=== PATIENT | female | born 1940 | race Caucasian/White ===

== ENCOUNTER 2017-03-20 20:45 | Emergency (ER) | payer BC ==
[~2017-03-20] VITALS: Ht 165.1 cm; Wt 95.0 kg
[2017-03-20] MEDS ORDERED: LORAZEPAM 2 MG INJ IV STA (20:48)
[2017-03-20 20:52] VITALS: Ht 165.1 cm; Wt 95.0 kg
[2017-03-20 21:09] LABS: BASOPHIL # 0.1 10^3/ul (0.0-0.1); BASOPHILS % 0.7 % (0.0-2.0); EOSINOPHILS # 0.3 10^3/ul (0.0-0.5); EOSINOPHILS % 2.9 % (0.0-7.0); HEMOGLOBIN 12.1 g/dl (12.0-16.0); LYMPHOCYTES # 3.2 10^3/ul (0.8-2.9); LYMPHOCYTES % 31.5 % (15.0-51.0); MEAN CORPUSCULAR HEMOGLOBIN 30.3 pg (29.0-33.0); MEAN CORPUSCULAR VOLUME 97.5 fl (82.0-101.0); MEAN PLATELET VOLUME 10.6 fl (7.4-10.4); MONOCYTES % 10.3 % (0.0-11.0); NEUTROPHIL # 5.4 10^3/ul (1.6-7.5); NEUTROPHILS % 54.2 % (39.0-77.0); PLATELET COUNT 305 10^3/UL (140-415); WHITE BLOOD COUNT 10.1 10^3/ul (4.8-10.8)
[2017-03-20 21:29] LABS: ANION GAP 20 (8-16); BLOOD UREA NITROGEN 27 mg/dl (7-20); CALCIUM 9.5 mg/dl (8.4-10.2); CARBON DIOXIDE 18 mmol/L (21-31); CHLORIDE 107 mmol/L (97-110); CREATININE 1.35 mg/dl (0.44-1.00); GLUCOSE 176 mg/dl (70-220); SODIUM 141 mmol/L (135-144)
[2017-03-20] MEDS ORDERED: HYD25 PO (21:41)
[2017-03-20] MEDS ORDERED: LISI40TA9 PO (21:41)
[2017-03-20] MEDS ORDERED: METF500T4 PO (21:42)
[2017-03-20] MEDS ORDERED: SIMV40TA2 PO (21:42)
[2017-03-20] MEDS ORDERED: ASPI-664 PO (21:43)
[2017-03-20] MEDS ORDERED: METO50TA16 PO (21:43)
[2017-03-20] MEDS ORDERED: ALBU18HF INHALATION (21:44)
[2017-03-20 21:52] LABS: TROPONIN-I < 0.012 ng/ml (0.00-0.12)
--- NOTE | 2017-03-20 22:18 | RADRPT ---
PROCEDURE: CT Brain without contrast. CLINICAL INDICATION: Seizure TECHNIQUE: A multiplanar CT of the brain was performed on a CT scanner utilizing axial imaging fro m the skull base through the vertex without IV contrast. The CTDIvol is 41.12 mGy and the DLP is 72 0.23 mGycm. One or more of the following dose reduction techniques were utilized: Automated exposu re control, adjustment of the mA and/or kV according to patient size, use of iterative reconstructio n technique. COMPARISON: None FINDINGS: No evidence of intracranial hemorrhage or abnormal extra-axial fluid collection. 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 The brain parenchyma is otherwise normal attenuation and morphology with preservation of pacheco white differentiation.The ventricles and subarachnoid spaces are prominen t compatible with volume loss. Atherosclerotic calcification of the cavernous internal carotid arter ies. The basal cisterns, posterior fossa contents, brainstem, craniocervical junction, orbits, pituitary axis, paranasal sinuses, mastoid air cells, and calvarium are unremarkable. IMPRESSION: 1. No intracranial hemorrhage or acute intracranial abnormality. MRI may be considered for further evaluation as clinically RPTAT:AAJJ Physician Kesha Date Time Electronically viewed and signed by Physician Kesha on 03/20/2017 22:17 RAAD/
--- NOTE | 2017-03-20 23:15 | ERD ---
ER Documentation Chief Complaint Date/Time DATE: 03/20/17 TIME: 23:14 Chief Complaint BIBRA c/o SE x 2 episodes. Combative and post ictal on scene. HPI Patient is a 76-year-old female with seizures who presents with a seizure. Please note the history and physical exam is limited secondary to the patient's mental status at this time. The patient was brought in by ambulance. The patient had a seizure and has been combative with paramedics. She was placed in restraints to protect herself but now has skin tears to the bilateral forearms. She is now slightly more alert than when the paramedics picked her up. She is a history of seizure and stopped her medications 2 years ago under the guidance of her doctor. ROS All systems reviewed and are negative except as per history of present illness. Medications Home Meds Reported Medications Albuterol Sulfate* (Ventolin HFA*) 18 Gm Hfa.aer.ad, 2 PUFF INHALATION Q6H Y for NEEDED, #1 INHALER 03/20/17 Metoprolol Succinate* (Toprol XL*) 50 Mg Tab.er.24h, 50 MG PO DAILY, #30 TAB 03/20/17 Aspirin* (Aspirin* EC) 81 Mg Tablet.dr, 81 MG PO DAILY, TAB 03/20/17 Simvastatin* (Zocor*) 40 Mg Tablet, 40 MG PO QHS, #30 TAB 03/20/17 Metformin Hcl* (Metformin Hcl*) 500 Mg Tablet, 500 MG PO WITH BREAKFAST DINNE, # 60 TAB 03/20/17 Lisinopril* (Lisinopril*) 40 Mg Tablet, 40 MG PO DAILY, #30 TAB 03/20/17 Hydrochlorothiazide* (Hydrochlorothiazide*) 25 Mg Tab, 25 MG PO DAILY, #30 TAB 03/20/17 Allergies Allergies: Coded Allergies: No Known Allergy (Verified , 03/20/17) PMhx/Soc History of Surgery: No Anesthesia Reaction: No Hx Neurological Disorder: Yes (SE) Hx Respiratory Disorders: Yes (Asthma) Hx Cardiac Disorders: Yes (HTN) Hx Psychiatric Problems: No Hx Miscellaneous Medical Probl: Yes (DM) Hx Alcohol Use: No Hx Substance Use: No Hx Tobacco Use: No Smoking Status: Never smoker FmHx Unable to obtain Physical Exam Vitals Vital Signs Date Time Temp Pulse Resp B/P Pulse Ox O2 Delivery O2 Flow Rate FiO2 03/20/17 22:03 93 18 117/56 97 Room Air 03/20/17 20:52 98.1 107 20 96 Physical Exam Const: Agitated and appears postictal Head: Atraumatic Eyes: Normal Conjunctiva ENT: Normal External Ears, Nose and Mouth. Neck: Full range of motion..~ No meningismus. Resp: Clear to auscultation bilaterally Cardio: Regular rate and rhythm, no murmurs Abd: Soft, non tender, non distended. Normal bowel sounds Skin: Skin tears of the bilateral forearms Back: No midline or flank tenderness Ext: No cyanosis, or edema Neur: Awake but postictal and not following commands at this time Result Diagram: 03/20/17204903/20/172049 Results 24 hrs Laboratory Tests Test 03/20/17 20:50 White Blood Count 10.110^3/ul Red Blood Count 4.0010^6/ul Hemoglobin 12.1g/dl Hematocrit 39.0% Mean Corpuscular Volume 97.5fl Mean Corpuscular Hemoglobin 30.3pg Mean Corpuscular Hemoglobin Concent 31.0g/dl Red Cell Distribution Width 13.0% Platelet Count 43994^3/UL Mean Platelet Volume 10.6fl Neutrophils % 54.2% Lymphocytes % 31.5% Monocytes % 10.3% Eosinophils % 2.9% Basophils % 0.7% Nucleated Red Blood Cells % 0.0/100WBC Neutrophils # 5.410^3/ul Lymphocytes # 3.210^3/ul Monocytes # 1.010^3/ul Eosinophils # 0.310^3/ul Basophils # 0.110^3/ul Nucleated Red Blood Cells # 0.010^3/ul Sodium Level 141mmol/L Potassium Level 4.0mmol/L Chloride Level 107mmol/L Carbon Dioxide Level 18mmol/L Anion Gap 20 Blood Urea Nitrogen 27mg/dl Creatinine 1.35mg/dl Glucose Level 176mg/dl Calcium Level 9.5mg/dl Troponin I < 0.012ng/ml Current Medications Medications (Trade) Dose Ordered Sig/Rachel Route PRN Reason Start Time Stop Time Status Last Admin Dose Admin Lorazepam (Ativan) 1 mg ONCE STAT IV 03/20/17 20:48 03/20/17 20:50 DC 03/20/17 21:19 Procedures/MDM EKG read by me: Rate/Rhythm: Sinus tachycardia rate of 102 Intervals: Normal Impression: Sinus tachycardia without ischemia CT brain shows no intracranial hemorrhage or mass per radiology. Patient is a 76-year-old female presents with acute altered mental status after seizure. I believe she is just having a postictal phase. Her laboratory studies are consistent with somebody who had a recent seizure. CT brain shows no intracranial hemorrhage or mass. At this point I believe outpatient management is appropriate and she is back to her normal baseline. Her wounds were dressed. The patient will be sent home to follow-up with her primary doctor within 24-48 hours. She can discuss restarting seizure medicines with her primary doctor. Departure Diagnosis: Primary Impression: Seizure Condition: Fair Patient Instructions: Seizure, Recurrent [Adult] Referrals: Your doctor Additional Instructions: Call your primary care doctor TOMORROW for an appointment during the next 2-3 days.See the doctor sooner or return here if your condition worsens before your appointment time. CHRISTINE MASCORRO MD Mar 20, 2017 23:15
[2017-03-20 23:29] VITALS: BP 126/62; PULSE 71; RESP 20
== END 2017-03-20 23:31 | disposition home or self-care (01) ==
LOC: E/R 20:45
DX: R56.9 Unspecified convulsions (principal); J45.909 Unspecified asthma, uncomplicated; I10 Essential (primary) hypertension; E11.9 Type 2 diabetes mellitus without complications; Z79.82 Long term (current) use of aspirin; Z79.84 Long term (current) use of oral hypoglycemic drugs
CPT/HCPCS: 36415; 70450; 80048; 84484; 85025; 93005; 96374; 99285; J2060